=== PATIENT | female | born 1970 | race Caucasian/White ===

== ENCOUNTER → 2016-04-09 | Outpatient (CLI) | payer OTHER ==
--- NOTE | 2016-04-09 17:48 | DX ---
Thoracolumbar spine - 2 views Indication: Left-sided back and rib pain. Technique: Upright AP and lateral views. Comparison: December 28, 2015. Findings: The inferior endplate of T9 through the lumbosacral junction is anatomically aligned. Minim al anterior wedging of T12 and L1 is within normal limit. No acute compression fracture. No pars defe ct or bone lesion. Mild degenerative disk disease is present at T11-T12, T12-L1, L1-L2, and L5-S1. Li mited imaged portion of the low posterior ribs are intact with no discernible rib fracture. Bowel pat tern is within normal limit. Impression: 1. No fracture or pars defect. 2. Mild degenerative disk disease at the thoracolumbar junction and lumbosacral junction.
== END ==
LOC: BRMIMAGING 16:24
PROVIDERS: ATTEND Registered Nurse
DX: M54.9 Dorsalgia, unspecified (principal); R07.81 Pleurodynia
CPT/HCPCS: 72080-PO

== ENCOUNTER → 2016-12-03 | Outpatient (CLI) | payer OTHER, MEDICAID | LOC: BRMIMAGING 09:18 | PROVIDERS: ATTEND Registered Nurse | DX: R92.8 Other abnormal and inconclusive findings on diagnostic imaging of breast (principal) | CPT/HCPCS: 76641; G0204 ==

== ENCOUNTER → 2016-12-16 | Outpatient (CLI) | payer OTHER, MEDICAID ==
[~2016-12-16] MED LIST: BUPIVACAINE 0.5% 10 ML SDV ONE; LIDOCAINE 1% 300 MG/30 ML SDV ONE; THROMBIN (BOVINE) 5,000 UNIT VIAL TP ONE
== END ==
LOC: FIMAGING 07:13
PROVIDERS: ATTEND Registered Nurse
PROC: 0HBT3ZX Excision of Right Breast, Percutaneous Approach, Diagnostic (ICD-10-PCS; principal; 2016-12-16)
DX: N60.31 Fibrosclerosis of right breast (principal); R92.0 Mammographic microcalcification found on diagnostic imaging of breast
CPT/HCPCS: 19083; 88305; G0206